=== PATIENT | male | born 1965 | race American Indian/Alaskan Native ===

== ENCOUNTER 2021-10-02 20:37 | Emergency (ER) | payer SELFPAY | END 2021-10-02 20:40 | disposition left against medical advice (07) | LOC: ED 20:37 | DX: M54.9 Dorsalgia, unspecified (principal); Z53.21 Procedure and treatment not carried out due to patient leaving prior to being seen by health care provider ==

== ENCOUNTER 2021-10-03 08:36 | Emergency (ER) | payer BC ==
--- NOTE | 2021-10-03 11:30 | Emergency Department Report ---
HPI - General Time Seen by Provider: 10/03/21 11:18 - HPI HPI: Room 18 The patient is a 56-year-old male present with a chief complaint of bilateral finger numbness and right lower extremity pain and numbness. Patient states she has had intermittent numbness of his left middle and ring finger and right middle finger for 1 year. The patient states he has not sought medical attention for this. Patient is right-handed. The patient states yesterday he developed pain from his right buttocks down to his right calf in addition to tingling. Patient denies any preceding trauma. Patient denies history of fever or shortness of breath. ED Past Medical Hx - Past Medical History Hx Hypertension: Yes Hx Diabetes: No (Borderline diabetes) - Surgical History Additional Surgical History: Left small finger surgery - Family History Family history: no significant - Social History Smoking Status: Former Smoker (None [id number]) Substance Use Type: None (Denies illicit drug use) - Medications Home Medications: Home Medications Medication Instructions Recorded Confirmed Last Taken Type Ibuprofen [Motrin 800 MG tab] 800 mg PO Q8HR PRN #20 tablet 10/03/21 Unknown Rx traMADoL [Ultram] 50 mg PO Q6HR PRN #14 tablet 10/03/21 Unknown Rx ED Review of Systems ROS: Stated complaint: RT LEG AND SPINE NUMBNESS Other details as noted in HPI Constitutional: denies: fever Eyes: denies: eye pain ENT: denies: throat pain Respiratory: denies: shortness of breath Cardiovascular: denies: chest pain Endocrine: no symptoms reported Gastrointestinal: denies: abdominal pain Genitourinary: denies: dysuria Skin: denies: lesions Neurological: paresthesias Physical Exam - Physical Exam Physical Exam: GENERAL: The patient is well-developed well-nourished male lying on stretcher not appearing to be in acute distress. [] HEENT: Normocephalic. Atraumatic. Extraocular motions are intact. Patient has moist mucous membranes. NECK: Supple. Trachea midline CHEST/LUNGS: There is no respiratory distress noted. HEART/CARDIOVASCULAR: Regular. There is no tachycardia. 2+ right DP ABDOMEN: There is no abdominal distention. SKIN: There is no rash. There is no edema. There is no diaphoresis. NEURO: The patient is awake, alert, and oriented. The patient is cooperative. The patient has no focal neurologic deficits. The patient has normal speech. GCS 15 MUSCULOSKELETAL: There is positive Phalen's test. There is positive straight leg raise test on the right. There is no evidence of acute injury. There is no axial tenderness to palpation or axial pain ED Medical Decision Making - Differential Diagnosis Sciatica, carpal tunnel syndrome, DVT Critical care attestation.: If time is entered above; I have spent that time in minutes in the direct care of this critically ill patient, excluding procedure time. ED Disposition Clinical Impression: Right leg pain, Bilateral finger numbness Disposition: 07 LEFT AGAINST MEDICAL ADVICE Is pt being admited?: No Does the pt Need Aspirin: No Condition: Undetermined Instructions: Carpal Tunnel Syndrome, [id number], Sciatica, Sciatica Rehab- [facility] Additional Instructions: Return to the emergency department should you develop worsening symptoms, inability to tolerate food or liquids, high fever or any other concerns Prescriptions: Ibuprofen [Motrin 800 MG tab] 800 mg PO Q8HR PRN #20 tablet PRN Reason: Pain, Moderate (4-6) traMADoL [Ultram] 50 mg PO Q6HR PRN #14 tablet PRN Reason: Pain Referrals: ROSIO SHEPHERD MD [Staff Physician] - 3-5 Days (Dr. Shepherd is an orthopedic surgeon. Please follow-up with him for further evaluation) Forms: AMA Form
[2021-10-03 11:31] VITALS: BP 148/11
== END 2021-10-03 13:00 | disposition left against medical advice (07) ==
LOC: ED 08:36
DX: M79.661 Pain in right lower leg (principal); Z87.891 Personal history of nicotine dependence; I10 Essential (primary) hypertension; R20.0 Anesthesia of skin
CPT/HCPCS: 99282